=== PATIENT | male | born 1950 ===

== ENCOUNTER 2020-03-21 07:27 | Inpatient (IN) ==
[2020-03-21] MEDS ORDERED: CeFAZolin Syr 2,000MG/20 ML 2,000 MG/20 ML SYRINGE IVPB ONE (07:50)
[2020-03-21] MEDS ORDERED: *HR* Propofol 200 MG/20 ML VIAL IVP ONE ×2 (07:58→09:46)
[2020-03-21] MEDS ORDERED: *HR* FentaNYL (PF) 100 MCG/2 ML VIAL ONE (07:58)
[2020-03-21] MEDS ORDERED: Ondansetron 4 MG/2 ML VIAL IVP PRN ×2 (07:59→12:41)
[2020-03-21] MEDS ORDERED: *HR* Promethazine 25 MG/ML VIAL IVP PRN (07:59)
[2020-03-21] MEDS ORDERED: Ringers Solution, Lactated 1,000 ML IVC SCH ×2 (08:00→12:41)
[2020-03-21] MEDS ORDERED: Dexamethasone 4 MG/ML VIAL ONE ×2 (08:02→11:09)
[2020-03-21] MEDS ORDERED: *HR* Rocuronium Bromide 50 MG/5 ML VIAL ONE (08:02)
[2020-03-21] MEDS ORDERED: Lidocaine -MPF 2% 2 ML VIAL ONE ×2 (08:02→11:08)
[2020-03-21] MEDS ORDERED: Lidocaine HCL 4 ML Topical Solution (Laryng-O-Jet Kit Sterile Pak) TP ONE (08:02)
[2020-03-21] MEDS ORDERED: Ondansetron 4 MG/2 ML VIAL ONE (08:02)
[2020-03-21] MEDS ORDERED: *HR* Succinylcholine 200 MG/10 ML VIAL IVP ONE (08:02)
[2020-03-21] MEDS ORDERED: *HR* Remifentanil 1 MG VIAL IVP ONE ×2 (08:28→11:12)
[2020-03-21] MEDS ORDERED: Bacitracin 50,000 UNIT, Polymyxin B Sulfate 500,000 UNIT, Sodium Chloride IRRigation 1,... IR ONE (09:00)
[2020-03-21] MEDS ORDERED: EPHEDrine 50 MG/ML VIAL ONE ×2 (09:49→13:15)
[2020-03-21] MEDS: *HR* HYDROmorphone PF 0.5 MG/0.5 ML SYRINGE IVP PRN ×4 (11:45→12:00)
[2020-03-21] MEDS: *HR* Labetalol 20 MG/4 ML SYRINGE IVP PRN ×2 (11:58→12:09)
[2020-03-21] MEDS ORDERED: *HR* HYDROcodone/Acet 5/325 mg TABLET PO PRN (12:41)
[2020-03-21] MEDS ORDERED: Naloxone 0.4 MG/ML INJ IVP PRN (12:41)
[2020-03-21] MEDS ORDERED: *HR* OxyCODONE Immed Rel 5 MG TABLET PO PRN (12:41)
[2020-03-21] MEDS ORDERED: *HR* PHENYLEPHRINE 1,000 MCG/10 ML SYRINGE IVP ONE (12:57)
[2020-03-21] MEDS: ceFAZolin 2,000 MG in 0.9 % Sodium Chloride 100 ML IVPB SCH ×2 (16:13→23:34)
[2020-03-21] MEDS: Acetaminophen 325 MG TABLET PO PRN (18:07)
[2020-03-22] MEDS ORDERED: NON-FORMULARY MEDICATION 1 EACH EACH (Zinc Gluconate [Zinc] 50 MG) PO SCH (09:00)
[2020-03-22] MEDS: Acetaminophen 325 MG TABLET PO PRN (09:00)
[2020-03-22] MEDS ORDERED: NON-FORMULARY MEDICATION 1 EACH EACH (Potassium 99 MG) PO SCH (09:00)
[2020-03-22] MEDS ORDERED: PUMPKIN SEED PO SCH (09:00)
[2020-03-22] MEDS: Multivit/Ca/Min/Fe/FA 1 TAB TABLET PO SCH (09:00)
[2020-03-22] MEDS ORDERED: ACAI BERRY EXTRACT PO SCH (09:00)
[2020-03-22] MEDS ORDERED: [UNRECOGNIZED DRUG - OTHER] PO SCH (09:00)
[2020-03-22] MEDS ORDERED: GINSENG 100 MG PO SCH (09:00)
[2020-03-22] MEDS ORDERED: SOY GERM PO SCH (09:00)
[2020-03-22] MEDS: (Tadalafil [Cialis] 5 MG) PO SCH (09:01)
[2020-03-23 06:36] VITALS: BP 165/92
[2020-03-23] MEDS: (Tadalafil [Cialis] 5 MG) PO SCH (07:32)
[2020-03-23] MEDS: Multivit/Ca/Min/Fe/FA 1 TAB TABLET PO SCH (08:52)
== END 2020-03-23 15:00 | disposition home health service (06) | DRG 472 ==
LOC: SAMDAY 07:27 → 3NENU 12:38
PROVIDERS: ADMIT Orthopaedic Surgery Orthopaedic Surgery of the Spine; ATTEND Orthopaedic Surgery Orthopaedic Surgery of the Spine